=== PATIENT | female | born 1970 | race American Indian/Alaskan Native ===

== ENCOUNTER 2018-04-27 19:36 | Emergency (ER) | payer BC ==
[2018-04-27 20:05] VITALS: BP 190/114
== END 2018-04-27 22:10 | disposition left against medical advice (07) ==
LOC: ED 19:36
DX: M54.2 Cervicalgia (principal); I10 Essential (primary) hypertension; Z53.21 Procedure and treatment not carried out due to patient leaving prior to being seen by health care provider